=== PATIENT | male | born 1960 | race Caucasian/White ===

== ENCOUNTER → 2025-02-20 06:53 | Outpatient (CLI) | payer OTHER, SELFPAY ==
--- NOTE | 2025-02-20 06:55 | DI.MRI.S_ITS ---
PROCEDURE: MR KNEE LT WO CON INDICATIONS: pain TECHNIQUE: Noncontrast sagittal PD fast spin echo and T2 fast spin echo with fat saturation, sagittal 3-D FLASH with fat saturation; coronal T1 spin echo and PD fast spin echo with fat saturation, and axial PD fast spin echo with fat saturation through the knee. COMPARISON: [facility], CR, XR KNEE LT 4V, 02/03/2025, 12:06. FINDINGS: Image quality: Excellent. Menisci: There is linear horizontal high T2 signal intensity within the inner, middle, and peripheral thirds of the medial meniscal body, demonstrating inferior articular surface extension, indicating horizontal tearing. There is vertically oriented tearing of the posterior horn medial meniscus. Linear oblique high T2 signal intensity traverses the inner, middle, and peripheral thirds of the posterior horn medial meniscus, demonstrating inferior articular surface extension, indicating oblique tearing there is truncation of the free edge of the lateral meniscal body, indicating radial tearing. Cruciate ligaments: The anterior and posterior cruciate ligaments appear intact. Medial structures: There is low-grade tearing of the medial collateral ligament within its mid/superior aspect. Visualized portions of the pes anserinus tendons appear normal. No abnormal bursal fluid. Lateral structures: The lateral collateral ligament, long and short heads of the biceps femoris tendon appear intact. The popliteus tendon appears normal. Iliotibial band appears normal. Anterior structures: The quadriceps and patellar tendons appear intact. Patellar alignment is normal. No femoral trochlear dysplasia or ventral trochlear prominence. No edema in the infrapatellar fat pad. Bones and cartilage: No bone marrow contusions or fractures. There is mild tricompartmental periarticular osteophyte formation. Severe articular cartilage loss diffusely overlies the weight-bearing aspects of the medial femoral condyle and medial tibial plateau. Joint space: There is a small knee joint effusion and a trace Husain's cyst. Normal appearing synovial plicae are incidentally noted. IMPRESSION: 1. Medial and lateral meniscal tearing. 2. Low-grade tearing of the medial collateral ligament. 3. Tricompartmental osteoarthritis with associated articular cartilage loss. 4. Knee joint effusion. Dictated by: Shawnee Cádrenas M.D. on 02/22/2025 at 11:25 Approved by: Shawnee Cárdenas M.D. on 02/22/2025 at 11:28
== END ==
LOC: MRI 06:53
PROVIDERS: PCP Family Medicine; Referring Provider Family Medicine; Visit Provider Family Medicine
DX: S83.242A Other tear of medial meniscus, current injury, left knee, initial encounter (principal); S83.282A Other tear of lateral meniscus, current injury, left knee, initial encounter; S83.412A Sprain of medial collateral ligament of left knee, initial encounter; M17.12 Unilateral primary osteoarthritis, left knee; M25.562 Pain in left knee; M25.462 Effusion, left knee; G89.29 Other chronic pain
CPT/HCPCS: 73721